=== PATIENT | female | born 1950 | race African-American/Black ===

== ENCOUNTER 2019-06-28 12:06 | Emergency (ER) | payer OTHER ==
[~2019-06-28] VITALS: Ht 165.1 cm; Wt 86.3 kg
[2019-06-28 12:59] VITALS: BP 210/86
--- NOTE | 2019-06-28 13:21 | PHYS DOC ---
Past Medical History Past Medical History: Hypertension, Other Additional Past Medical Histor: CHRONIC PAIN, PSORIASIS Past Surgical History: Hysterectomy, Other Additional Past Surgical Histo: VEIN Smoking Status: Never Smoker Alcohol Use: Occasionally Drug Use: None Adult General Chief Complaint Chief Complaint: SKIN PROBLEM [facility] HPI Patient is a 69 year old [f female who presents with generalized body rash. Patient states she has history of psoriasis, this feels similar to her previous flareups. States she just itches all over the place. States she has not tried any new medications recently, had been seen at her primary care office May 14, was given prescription for Keflex. States she has tried her creams, with no improvement states she has tried some Benadryl and hydroxyzine without relief. Denies any fever. Denies any trauma. States her lesions have been unchanged over the last several days. States her current rash has been like this for the last 3 to 4 days. States it seems to have gotten a little bit worse, as she has in previous flareups. States she does have a follow-up appointment on Saturday with dermatology. Review of Systems Review of Systems Constitutional: Denies fever or chills [] Respiratory: Denies cough or shortness of breath [] Cardiovascular: No additional information not addressed in HPI [] GI: Denies abdominal pain, nausea, vomiting, bloody stools or diarrhea [] Musculoskeletal: Denies back pain or joint pain [] Integument: Reports generalized rash with skin lesions, unchanging over the last couple days. Consistent with her previous episodes of her flareups of psoriasis [] Neurologic: Denies headache, focal weakness or sensory changes [] Endocrine: Denies polyuria or polydipsia [] All other systems were reviewed and found to be within normal limits, except as documented in this note. Allergies Allergies Allergies Coded Allergies Type Severity Reaction Last Updated Verified No Known Drug Allergies 04/04/15 No Physical Exam Physical Exam Constitutional: Well developed, well nourished, no acute distress, non-toxic appearance. [] HENT: Normocephalic, atraumatic, oropharynx moist, no oral exudates, nose normal. [] Eyes: PERRLA, EOMI, conjunctiva normal, no discharge. [] Neck: Normal range of motion, no tenderness, supple, no stridor. [] Cardiovascular:Heart rate regular rhythm, 76, no murmur [] Lungs & Thorax: Bilateral breath sounds clear to auscultation [] Skin: Warm, dry, no erythema, generalized pustular rash throughout body. Noted to hands, and also reported on the feet. Sparing face. Right posterior hand, noted erythematous, annular area approximately 10 cm in diameter, without reported change. No purulence noted. No bleeding noted. [] Back: No tenderness, no CVA tenderness. [] Extremities: No tenderness, no cyanosis, no clubbing, ROM intact, no edema. [] Neurologic: Alert and oriented X 3, normal motor function, normal sensory function, no focal deficits noted. [] Psychologic: Affect normal, judgement normal, mood normal. [] Current Patient Data Vital Signs Vital Signs Date Time Temp Pulse Resp B/P (MAP) Pulse Ox O2 Delivery O2 Flow Rate FiO2 06/28/19 12:59 98.4 74 20 210/86 (127) 99 Room Air 98.4 EKG EKG [] Radiology/Procedures Radiology/Procedures [] Course & Med Decision Making Course & Med Decision Making Pertinent Labs and Imaging studies reviewed. (See chart for details) [Patient does have follow-up with dermatology on Saturday, will provide dose of steroids here to decrease inflammation. Advised to continue taking her Benadryl, continue to take her hydroxyzine as needed, discussed her prior use of Keflex with prescription dated May 14 and this being June 27 and patient remaining with 8 tablets at this time. Patient was not given refills of his medications. advised patient of importance to take all of antibiotics as prescribed at the time of starting them and not to hold onto antibiotics. With findings consistent with patient prior flareups, believe this is similar. No active signs of infection, afebrile, non-tachycardic] Dragon Disclaimer Dragon Disclaimer This electronic medical record was generated, in whole or in part, using a voice recognition dictation system. Departure Departure Impression: Primary Impression: Dermatitis due to unknown cause Disposition: 01 HOME, SELF-CARE Condition: STABLE Referrals: VALERIE CAMPO MD (PCP) Patient Instructions: Psoriasis, [id number] Additional Instructions: As discussed, when you take antibiotics make sure you are taking them at the time they are prescribed and not holding onto them. Make sure you continue to take your Benadryl or hydroxyzine for your itching. We have given you a dose of steroids which should help your itching and your rash. Keep your appointment with your parole agent on Saturday as previously have scheduled. IVÁN HIGGINS APRN Jun 28, 2019 13:21
[2019-06-28] MEDS ORDERED: methylPREDNISolone ACETATE 80 MG/ML VIAL. IM ONE (13:30)
== END 2019-06-28 13:30 | disposition home or self-care (01) ==
LOC: ER 12:06
DX: L25.8 Unspecified contact dermatitis due to other agents (principal); L85.3 Xerosis cutis; R21 Rash and other nonspecific skin eruption; L40.9 Psoriasis, unspecified; I10 Essential (primary) hypertension; G89.29 Other chronic pain; Z90.710 Acquired absence of both cervix and uterus; Z98.890 Other specified postprocedural states
CPT/HCPCS: 96372; 99283; J1040